=== PATIENT | male | born 1950 | race Caucasian/White ===

== ENCOUNTER 2016-12-16 07:11 | Day surgery (SDC) ==
[2014-02-26 08:34] VITALS: BMI 32.8
[2016-12-16] MEDS ORDERED: LIDOCAINE 2% 20 ML MDV ONE ×2 (07:30)
[2016-12-16] MEDS ORDERED: LIDOCAINE 1% 20 ML MDV ID ONE (07:30)
[2016-12-16] MEDS ORDERED: LIDOCAINE HCL 2% LUER-JET ONE (09:15)
[2016-12-16] MEDS ORDERED: VERSED ONE (09:15)
[2016-12-16] MEDS ORDERED: DIPRIVAN 20 ML VIAL IVP ONE (09:15)
[2016-12-16 10:25] VITALS: BP 124/75; TEMP 98.2
--- NOTE | 2016-12-17 09:21 | OP ---
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 MEDICATIONS: SEE ANESTHESIA NOTES. PROCEDURE: ENDOSCOPY ESOPHAGEAL BIOPSY. REPORT: The risks, benefits, alternatives and limitations were discussed in detail with the patient. Informed consent was obtained. After adequate sedation was achieved, the video endoscope was introduced in the posterior pharynx and esophagus under direct vision and easily advanced down to the second portion of the duodenum. I then slowly withdrew. The duodenal mucosa appeared unremarkable as did the duodenal bulb. The antrum and body were relatively unremarkable. The scope was retroflexed to look at the cardia and fundus which was unremarkable. The scope was anteflexed and withdrawn back through the esophagus the GE junction was irregular. Tongue mucosa extend approximately for about a half a centimeter. This was consistent with the history with Short Segment Berkowitz's disease. The top of the tongue is at 39cm. Four quadrant biopsies were obtained. The esophagus with otherwise unremarkable. The patient tolerated the procedure well with stable vital signs and pulse oximetry throughout. IMPRESSION: 1. Short segment Berkowitz's by history RECOMMENDATIONS: 1. Strict reflux precautions. 2. Await esophageal biopsy results. If everything is unremarkable without dysplasia I recommend repeat endoscopy examination again in three years. 3. Office visit as needed CC: Dr. Himanshu ARENAS
== END 2016-12-16 10:30 | disposition home or self-care (01) ==
LOC: SURG 07:11
PROVIDERS: ATTEND Internal Medicine Gastroenterology
DX: K22.70 Barrett's esophagus without dysplasia (principal); D13.0 Benign neoplasm of esophagus